=== PATIENT | male | born 1965 | race Caucasian/White ===

== ENCOUNTER 2018-02-15 17:40 | Emergency (ER) | payer OTHER ==
[~2018-02-15] VITALS: Ht 167.6 cm; Wt 68.0 kg
[~2018-02-15 17:40] MED LIST: AVALIDE 150-121 EACH PO; LYRICA; PREDNISONE 20 M20 MG PO
[2018-02-15] MEDS ORDERED: WELLBUTRIN XL300 MG PO (18:05)
[2018-02-15] MEDS ORDERED: LISINOPRIL20 MG PO (18:05)
[2018-02-15] MEDS ORDERED: BACTROBAN CREAM30 G1 TOP (19:07)
[2018-02-15] MEDS ORDERED: NAPROSYN500 MG PO (19:07)
[2018-02-15] MEDS ORDERED: CLEOCIN HCL150 MG PO (19:07)
== END 2018-02-15 19:18 | disposition home or self-care (01) ==
LOC: ER 17:40
DX: S91.332A Puncture wound without foreign body, left foot, initial encounter (principal); L01.00 Impetigo, unspecified; M25.531 Pain in right wrist; M54.5 Low back pain; B18.2 Chronic viral hepatitis C; I10 Essential (primary) hypertension; K21.9 Gastro-esophageal reflux disease without esophagitis; F17.200 Nicotine dependence, unspecified, uncomplicated; Z88.5 Allergy status to narcotic agent; W22.8XXA Striking against or struck by other objects, initial encounter; Y93.89 Activity, other specified; Y92.89 Other specified places as the place of occurrence of the external cause; Y99.8 Other external cause status

== ENCOUNTER 2018-05-16 04:14 | Emergency (ER) | payer OTHER ==
[~2018-05-16] VITALS: Ht 167.6 cm; Wt 64.9 kg
[~2018-05-16 04:14] MED LIST changes: +BACTROBAN CREAM30 G1 TOP; +CLEOCIN HCL150 MG PO; +LISINOPRIL20 MG PO; +NAPROSYN500 MG PO; +WELLBUTRIN XL300 MG PO
[2018-05-16] MEDS ORDERED: ROXICODONE5 MG PO (04:41)
[2018-05-16] MEDS ORDERED: [UNRECOGNIZED DRUG - OTHER] (04:43)
[2018-05-16 05:31] LABS: ABSOLUTE NEUTROPHILS 7.1 thou/uL (1.4-8.2); BASOPHILS 1.9 % (0.0-2.0); EOSINOPHILS 1.4 % (0.0-3.0); HEMATOCRIT 35.4 % (42.0-52.0); HEMOGLOBIN 12.4 gm/dL (14.0-18.0); LYMPHOCYTES 17.4 % (24.0-44.0); MCH 32.7 pg (26.0-34.0); MCV 93.4 fL (80.0-100.0); MONOCYTES 8.5 % (1.0-8.0); PLATELET COUNT 321 thou/uL (150-400); POLYS 70.8 % (36.0-66.0); RBC 3.79 mil/uL (4.50-6.00); RDW 13.6 % (10.5-14.5); WBC 10.1 thou/uL (4.0-11.0)
[2018-05-16 05:38] LABS: ANION GAP 13 mmol/L (7-16); BUN 29 mg/dL (7-18); CALCIUM 9.3 mg/dL (8.5-10.1); CHLORIDE 99 mmol/L (98-107); CO2 25 mmol/L (21-32); CREATININE 2.2 mg/dL (0.7-1.3); GLUCOSE 124 mg/dL (74-106); POTASSIUM 4.3 mmol/L (3.5-5.1); SODIUM 137 mmol/L (136-145)
[2018-05-16 05:47] LABS: TROPONIN-I <0.06 ng/mL (<0.06)
[2018-05-16] MEDS ORDERED: AZITHROMYCIN 2250 MG PO (06:05)
[2018-05-16] MEDS ORDERED: TESSALON PERLE100 MG PO (06:13)
[2018-05-16] MEDS ORDERED: ROBITUSSIN15 MG/5 ML PO (06:18)
[2018-05-16 06:20] VITALS: BP 129/67
--- NOTE | 2018-05-16 08:11 | EKG ---
[address] [address] ELECTROCARDIOGRAM REPORT Name: NAGIDEEP JaureguiSHARLA M Room #: [facility]#: [id number] Admission: 05/16/18 Attend Phys: Discharge: 05/16/18 Date of : 65 Report #: [id number] THIS REPORT FOR: //name// [facility] ED Test Date: 2018-05-16 Test Time: 05:28:34 Pat Name: SHARLA CUMMINGS Department: Room: Gender: Erp Business Analyst: nanda : 1965 Requested By: Kati Mendoza Order Number: [id number] MD: Leonard Sanderson Measurements Intervals Hector Rate: 80 P: 67 OR: 139 QRS: 54 QRSD: 89 T: 52 QT: 396 QTc: 457 Interpretive Statements Sinus rhythm Normal tracing No previous ECG available for comparison Electronically Signed On 05-16-2018 8:11:28 INJECTION PRESS OPERATOR by Leonard Sanderson [email or web address] <ELECTRONICALLY SIGNED> By: Leonard Sanderson MD, [facility] 05/16/18 0811 0528 0528 Leonard Sanderson MD, FACC /EPI
== END 2018-05-16 06:21 | disposition home or self-care (01) ==
LOC: ER 04:14
PROVIDERS: Student in an Organized Health Care Education/Training Program
DX: J40 Bronchitis, not specified as acute or chronic (principal); I12.9 Hypertensive chronic kidney disease with stage 1 through stage 4 chronic kidney disease, or unspecified chronic kidney disease; N18.9 Chronic kidney disease, unspecified; K21.9 Gastro-esophageal reflux disease without esophagitis; Z88.8 Allergy status to other drugs, medicaments and biological substances

== ENCOUNTER 2018-08-25 00:17 | Emergency (ER) | payer OTHER ==
[~2018-08-25] VITALS: Ht 177.8 cm; Wt 81.7 kg
[~2018-08-25 00:17] MED LIST changes: +AZITHROMYCIN 2250 MG PO; +ROBITUSSIN15 MG/5 ML PO; +ROXICODONE5 MG PO; +TESSALON PERLE100 MG PO; +[UNRECOGNIZED DRUG - OTHER]
[2018-08-25] MEDS ORDERED: TRAZODONE 150150 M1 PO (00:46)
[2018-08-25] MEDS ORDERED: ZANAFLEX4 M1 PO (00:47)
[2018-08-25 04:00] VITALS: BP 173/98
== END 2018-08-25 04:00 | disposition short-term general hospital (02) ==
LOC: ER 00:17
DX: S02.641A Fracture of ramus of right mandible, initial encounter for closed fracture (principal); I10 Essential (primary) hypertension; K21.9 Gastro-esophageal reflux disease without esophagitis; Z88.8 Allergy status to other drugs, medicaments and biological substances; Y04.2XXA Assault by strike against or bumped into by another person, initial encounter; Y93.89 Activity, other specified; Y92.89 Other specified places as the place of occurrence of the external cause; Y99.8 Other external cause status

== ENCOUNTER 2020-01-17 18:02 | Inpatient (IN) | payer OTHER ==
[~2020-01-17] VITALS: Ht 167.6 cm; Wt 47.2 kg
[~2020-01-17 18:02] MED LIST changes: +TRAZODONE 150150 M1 PO; +ZANAFLEX4 M1 PO
[2020-01-17 18:03] VITALS: BP 180/114
[2020-01-17 18:40] LABS: WBC 11.4 thou/uL (4.0-11.0)
[2020-01-17 18:41] LABS: HEMATOCRIT 33.2 % (42.0-52.0); HEMOGLOBIN 10.7 gm/dL (14.0-18.0); MCH 28.7 pg (26.0-34.0); MCHC 32.3 g/dL (28.0-37.0); MCV 88.7 fL (80.0-100.0); RBC 3.74 mil/uL (4.50-6.00); RDW 18.7 % (10.5-14.5)
[2020-01-17 18:49] LABS: ANION GAP 9 mmol/L (7-16); BUN 19 mg/dL (7-18); CALCIUM 9.5 mg/dL (8.5-10.1); CHLORIDE 97 mmol/L (98-107); CO2 27 mmol/L (21-32); CREATININE 0.8 mg/dL (0.7-1.3); GLUCOSE 98 mg/dL (74-106); POTASSIUM 4.2 mmol/L (3.5-5.1); SODIUM 133 mmol/L (136-145)
[2020-01-17 19:00] LABS: ALBUMIN 2.6 g/dL (3.4-5.0); LIPASE 29 U/L (73-393); SGOT 14 U/L (15-37); SGPT 13 U/L (30-65); TOTAL BILIRUBIN 0.3 mg/dL (0.2-1.0); TOTAL PROTEIN 9.8 g/dL (6.4-8.2); TROPONIN-I <0.06 ng/mL (<0.06)
[2020-01-17] MEDS ORDERED: AMLODIPINE BESY10 MG PO (19:22)
[2020-01-17] MEDS ORDERED: ACETAMINOPHEN650 M5 PO (19:22)
[2020-01-17] MEDS ORDERED: COLESTIPOL HCL1 G1 PO (19:23)
[2020-01-17] MEDS ORDERED: DULCOLAX STOOL100 M1 PO (19:23)
[2020-01-17] MEDS ORDERED: NEURONTIN300 MG PO (19:24)
[2020-01-17] MEDS ORDERED: PROZAC 10 MG CA10 MG PO (19:24)
[2020-01-17] MEDS ORDERED: OXTELLAR XR300 MG PO (19:25)
[2020-01-17] MEDS ORDERED: MIRALAX119 GM PO (19:26)
[2020-01-17] MEDS ORDERED: ROXICODONE15 M1 PO (19:26)
[2020-01-17] MEDS ORDERED: GAS-X125 M1 PO (19:27)
[2020-01-17] MEDS ORDERED: BISACODYL10 MG RECTAL (19:28)
[2020-01-17] MEDS ORDERED: LATUDA20 MG PO (19:29)
[2020-01-17 20:15] LABS: URINE BILIRUBIN NEGATIVE (Negative); URINE BLOOD NEGATIVE (Negative); URINE CLARITY CLEAR; URINE COLOR YELLOW; URINE GLUCOSE-RANDOM* NEGATIVE (Negative); URINE KETONES NEGATIVE (Negative); URINE LEUKOCYTES-REFLEX NEGATIVE (Negative); URINE NITRITE-REFLEX NEGATIVE (Negative); URINE PROTEIN (DIPSTICK) TRACE (Negative); URINE SPECIFIC GRAVITY 1.025 (1.005-1.035); URINE UROBILINOGEN 0.2 E.U./dl (0.2-1.0)
[2020-01-18 00:35] LABS: % SATURATION 10 % (20-39); IRON 21 ug/dL (65-175); TIBC 203 ug/dL (250-450)
[2020-01-18 08:21] LABS: HEMATOCRIT 31.4 % (42.0-52.0); MCH 28.1 pg (26.0-34.0); MCHC 31.8 g/dL (28.0-37.0); MCV 88.4 fL (80.0-100.0); RBC 3.55 mil/uL (4.50-6.00); RDW 18.7 % (10.5-14.5); WBC 10.7 thou/uL (4.0-11.0)
[2020-01-18 08:34] LABS: CALCIUM 8.4 mg/dL (8.5-10.1); CREATININE 0.8 mg/dL (0.7-1.3); MAGNESIUM 1.8 mg/dL (1.8-2.4); POTASSIUM 4.3 mmol/L (3.5-5.1)
[2020-01-18 11:41] VITALS: BP 140/98
--- NOTE | 2020-01-18 13:52 | NUR ---
PT STATES THAT "NG TUBE FELL OUT"
[2020-01-18 16:55] VITALS: BP 174/102
[2020-01-18 17:20] VITALS: BP 144/94
[2020-01-18 19:10] VITALS: BP 163/100
--- NOTE | 2020-01-18 19:56 | NUR ---
Admitted patient from ER due to nausea, vomiting and abdominal pain. Transferred to bed safely. Admission history, education and assessment done. A+OX4. On room air. Vital signs stable. On telemetry; SR; no complains of chest pain, crushing sensation and heaviness. On nothing per orem- pt informed and aware. With NG tube in place- on R nare- verified with ER staff, no orders to connect to LIS. No nausea and vomting noted upon admission to street. Assisted in ADLs. Admission forms signed. With abdominal scar noted- no bleeding and drainage seen, pt said he had surgery from [place]; with TIFFANY drain at [facility] noted- dressing C/D/I, pt said it was also placed from [place] and has been there for almost a month already. Falls bundle in place. Complained of pain, PRN meds given already and not due until 8pm- Dr Bonner informed, a/w orders for additional pain meds. With SL at R FA- D5NS started as prescribed at 80cc/hr, infusing well. Continent of bowel and bladder, able to go to the toilet with standby assist. With orders for medical records to be obtained from [facility]- Night RN informed to continue admission as well, SCDs to be applied as well. To continue monitoring patient.
[2020-01-18 22:30] VITALS: BP 158/98
--- NOTE | 2020-01-19 01:27 | NUR ---
PT AMBULATING TO BATHROOM WITH STANDBY ASSIST AND IS TOLERATING WELL. DILAUDID PROVIDING PAIN RELIEF. DENIES NAUSEA. PT TRANSFERRED TO AT 2200 VIA BED. BEDSIDE REPORT GIVEN.
--- NOTE | 2020-01-19 05:49 | NUR ---
VSS-AFEBRILE. C/O ABDOMINAL PAIN THAT IS WELL CONTROLLED WITH IV PAIN MEDS. KEPT NPO AFTER MIDNIGHT DUE TO SURGERY TODAY. CALLS APPROPRIATELY FOR ASSISTANCE.
[2020-01-19 07:16] VITALS: BP 165/95
[2020-01-19 15:12] LABS: HEMOGLOBIN 9.1 gm/dL (14.0-18.0); MCH 28.7 pg (26.0-34.0); MCHC 31.2 g/dL (28.0-37.0); MCV 91.8 fL (80.0-100.0); RBC 3.15 mil/uL (4.50-6.00); RDW 18.8 % (10.5-14.5); WBC 4.2 thou/uL (4.0-11.0)
[2020-01-19 15:13] VITALS: BP 147/88
[2020-01-19 15:14] LABS: PLATELET COUNT 831 thou/uL (150-400)
[2020-01-19 15:22] LABS: CALCIUM 8.3 mg/dL (8.5-10.1); CREATININE 0.7 mg/dL (0.7-1.3); MAGNESIUM 1.6 mg/dL (1.8-2.4); POTASSIUM 3.8 mmol/L (3.5-5.1)
[2020-01-19 15:40] LABS: ABSOLUTE NEUTROPHILS 2.5 thou/uL (1.4-8.2); ANISOCYTOSIS 2+
[2020-01-19 15:41] LABS: MICROCYTES FEW
[2020-01-19 15:42] LABS: MACROCYTES FEW; POLYCHROMASIA OCCASIONAL; SCHISTOCYTES OCCASIONAL
--- NOTE | 2020-01-19 18:27 | NUR ---
PT A&OX4, VSS, PAIN. PAIN MEDICATION GIVEN. PATIENT HAS TIFFANY DRAIN LLQ. IV PATENT. PATIENT ON FULL LIQUID DIET. SURGRY CANCELED TODAY. PT NSR ON TELE MONITOR. NO SIGNS OF DISTRESS, WILL CONTINUE TO MONITOR.
[2020-01-19 20:30] VITALS: BP 163/105
[2020-01-19 23:27] VITALS: BP 159/94
--- NOTE | 2020-01-20 04:12 | NUR ---
ASSUMED CARE OF PT AT 1900HRS. PT AOX4 AND LETS NEEDS BE KNOWN. TIFFANY IN LLQ OF ABDOMEN. PT RUNNING SR ON TELE. PT REPORTED PAIN AND WAS TREATED WITH PRN PAIN MEDS. PT DENIES HAVING AN ANAL ABCESS AND REFUSES ASSESSMENT. PT EVEN WANTS TO ADMINISTER OWN SUPPOSITORY. PT HAS HTN AND LOPRESSOR SCHEDULED. OTHER VSS. PT WAS ABLE TO GET COMFORTABLE AND SLEEP PART OF THE SHIFT. WILL CONTINUE TO MONITOR.
[2020-01-20 06:09] VITALS: BP 178/109
[2020-01-20 06:11] LABS: HEMOGLOBIN 9.1 gm/dL (14.0-18.0)
[2020-01-20 06:12] LABS: HEMATOCRIT 28.7 % (42.0-52.0); MCH 28.4 pg (26.0-34.0); MCHC 31.7 g/dL (28.0-37.0); MCV 89.6 fL (80.0-100.0); RBC 3.21 mil/uL (4.50-6.00); RDW 18.8 % (10.5-14.5); WBC 4.8 thou/uL (4.0-11.0)
[2020-01-20 06:14] LABS: ALBUMIN 1.9 g/dL (3.4-5.0); CALCIUM 8.3 mg/dL (8.5-10.1); CREATININE 0.7 mg/dL (0.7-1.3); POTASSIUM 3.4 mmol/L (3.5-5.1); TOTAL BILIRUBIN 0.2 mg/dL (0.2-1.0); TOTAL PROTEIN 7.2 g/dL (6.4-8.2)
--- NOTE | 2020-01-20 07:25 | EKG ---
[facility] [place] [address] ELECTROCARDIOGRAM REPORT Name: SHARLA CUMMINGS Room #: 449-I ADM IN M.R.#: [id number] Admission: 01/17/20 Attend Phys: Venkatesh Dykes Discharge: Date of : 65 Report #: [id number] THIS REPORT FOR: cc: RENNY Partida family physician/PCP RENNY Partida family physician/PCP Leonard Sanderson MD [facility] THIS REPORT FOR: //name// [facility] ED Test Date: 2020-01-17 Test Time: 19:02:55 Pat Name: SHARLA CUMMINGS Department: Room: [facility] Gender: M Elevator Operator: amadou : 1965 Requested By: Kati Mendoza Order Number: [id number] MD: Leonard Sanderson Measurements Intervals [place] Rate: 98 P: 65 NJ: 149 QRS: 58 QRSD: 90 T: 53 QT: 353 QTc: 451 Interpretive Statements Sinus rhythm Nonspecific ST segment abnormality Baseline wander in lead(s) V2 Compared to ECG 05/16/2018 05:28:34 No significant change was found Electronically Signed On 01-20-2020 7:25:39 CDT by Leonard Sanderson [email or web address] <ELECTRONICALLY SIGNED> By: Leonard Sanderson MD, FAC 01/20/20 0725 01 01 Leonard Sanderson MD, FAC /EPI
[2020-01-20 08:45] VITALS: BP 162/106
--- NOTE | 2020-01-20 12:22 | NUR ---
IV TEAM PAGED X 2 FOR PERIPHERAL LINE PLACEMENT. EMILIANO IV INFILTRATED AT 1100. POTASSIUM AND ANITBX ON HOLD UNTIL WE CAN GET A LINE, THIS RN ATTEMPTED X 2 WITHOUT SUCCESS.
--- NOTE | 2020-01-20 13:56 | NUR ---
PAGED IV TEAM X 3, STATES WILL BE HERE WHEN THEN CAN GET HERE. AWAITING IV FOR POTASSIUM, IV ATBX AND PAIN MED ADMINISTRATION. PT UPDATED, LADIES' HAT TRIMMER NOTIFIED OF 2.5HR WAIT FOR IV TEAM.
--- NOTE | 2020-01-20 14:06 | NUR ---
PT ADMITTED RELATED TO SBO, HYPONATREMIA. CM REVIEWED CHART AND SPOKE WITH CARE TEAM. CM CALLED AND SPOKE WITH PT OVER THE PHONE THIS AM. PT INDICATED HE HAD BEEN AT [facility] FOR SHORT TERM SKILLED REHAB PRIOR TO ADMISSION. PT INDICATED HE [place]IDES IN [place]. HE INDICATED HIS COMMUNITY PCP IS DR. JOSELYN WALLACE. 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 PT HAD NG IN PLACE UPON ADMISSION IT HAS SINCE BEEN REMOVED. PT IS BEING ADVANCED TO CLEAR LIQUID DIET YESTERDAY. PT INDICATED HE PLANS TO RETURN TO [facility] ONCE MEDICALLY STABLE. CM NOTIFIED LIAISON. SHE IS AWARE. REFERRAL TO BE FAXED TO FACILITY. CM TO FOLLOW INDICATED WITH DC PLANNING.
[2020-01-20 14:50] VITALS: BP 155/106
--- NOTE | 2020-01-20 16:32 | NUR ---
ASSUMED CARE AT SHIFT CHANGE. PT A/O X 4, PLESANT AND CALM THROUGHOUT SHIFT. PT IV LEAVING AND INFILTRATED AFTER AM MEDS GIVEN. ATTEMPTED X 2 FOR IV WITH NO SUCCESS. CALLED IV TEAM FOR NEW IV PLACEMENT. MEDS GIVEN AFTER NEW IV PLACED. PT PAIN CONTROLLED WITH PRN PAIN MEDS PER EMAR. BP ELEVATED DESPITE SCHEDULED LOPRESSOR , DR MOSQUEDA NOTIFIED AND MEDS ORDERED. LABS ORDERED, HEM/ONC CONSULTED. PT DENIES NAUSEA THROUGHOUT THE DAY, REG DIET ORDERED TODAY PT HAD BM THIS AFTERNOON AND KUB SHOWS SBO RESOLVING. ASSESSMENT PER CHART. WILL CONT TO YUEIOR.
[2020-01-20 20:17] VITALS: BP 131/83
[2020-01-20 23:20] VITALS: BP 154/85
--- NOTE | 2020-01-21 01:49 | NUR ---
ASSUMED CARE OF PT AT 1900HRS. PT AOX4 AND LETS NEEDS BE KNOWN. ASSESSMENT CHARTED. PT RUNNING SR/SB ON TELE. ABC TREATMENT CONTINUED. PT REPORTED SOME PAIN AND WAS TREATED WITH PRN PAIN MEDS. PT REPORTS PASSING GAS. PT DENIES NAUSEA OR SOA. SOME MEDS SEITCHED TO PO. PT WAS ABLE TO GET COMGORTABLE AND SLEEP PART OF THE SHIFT. VSS AND NO S/S OF ACUTE DISTRESS. WILL CONTINUE TO MONITOR.
[2020-01-21 05:20] VITALS: BP 160/84
--- NOTE | 2020-01-21 16:13 | NUR ---
PT IS FROM [facility] FAXED CLINICAL UPDATE SPOKE WITH BECKI IN ADM SHE RECEIVED UPDATE. DP TO FOLLOW.
[2020-01-21 16:26] VITALS: BP 146/93
[2020-01-21 19:05] VITALS: BP 157/96
--- NOTE | 2020-01-22 03:16 | NUR ---
Pt. rested quietly at short intervals during the night when checked on during frequent rounds. He c/o nausea and was given ivp zofran with some relief. Pt. also c/o abdominal pain and ivp pain meds given (see emar) with some relief (see emar). He is passing gas. Up to the bathroom with stand by assist.
[2020-01-22 06:07] VITALS: BP 143/91
[2020-01-22 08:00] VITALS: BP 145/97
[2020-01-22 10:36] LABS: ABSOLUTE RETIC COUNT 0.042 10^6/uL; OBSERVED RETIC COUNT 1.44 % (0.6-2.6)
--- NOTE | 2020-01-22 14:00 | NUR ---
CARE TEAM INDICATED THAT PT IS TO BE NPO AFTER MIDNIGHT THIS EVENING FOR AN ULTRASOUND TOMROROW. CM NOTIFIED LIAISON AT [facility] OF POSSIBLE DC TOMORE DEPENDING ON OR MONDAY. SHE INDICATED THAT THEY DON'T NEED PT TO HAVE ANOTHER COVID TEST PRIOR TO RETURNING. CM TO FOLLOW INDICATED WITH DC PLANNING.
--- NOTE | 2020-01-22 16:14 | NUR ---
PT A&OX4, VSS, ABDOMINAL PAIN. PATIENT C/O OF NAUSEA AND HARD TO PASS FLATUS. PATIENT GIVEN MEDICATION TO HELP WITH THESE CONCERNS. NAUSEA AND FLATUS RELIEVED. PAIN IS CONTINUOUS PER PATIENT. PATIENT STEADY ON FEET AND UP TO BATHROOM AD DAYLIN. PURULENT DRAINAGE FROM TIFFANY TUBE LLQ 10 ML OFF THIS SHIFT. PATIENT IN A DEPRESSIVE MOOD. NO SIGNS OF DISTRESS WILL CONTINUE TO MONITOR.
[2020-01-22 17:00] VITALS: BP 150/94
[2020-01-22 20:06] LABS: IgA 360 mg/dL (90-386); IgG 2171 mg/dL (603-1613); IgM 162 mg/dL (20-172)
[2020-01-22 20:13] VITALS: BP 140/90
--- NOTE | 2020-01-23 04:55 | NUR ---
Pt. rested quietly at intervals during the night when checked on during frequent rounds. He c/o chronic abdominal pain and pain meds given (see emar) with some relief. He also c/o nausea and iv zofran given with relief. Raheem drain intact with very minimal drainage.
[2020-01-23 06:47] LABS: HEMATOCRIT 28.6 % (42.0-52.0); HEMOGLOBIN 9.2 gm/dL (14.0-18.0); MCH 29.3 pg (26.0-34.0); MCHC 32.2 g/dL (28.0-37.0); RBC 3.15 mil/uL (4.50-6.00); RDW 19.5 % (10.5-14.5); WBC 6.9 thou/uL (4.0-11.0)
[2020-01-23 07:02] LABS: CALCIUM 8.5 mg/dL (8.5-10.1); CREATININE 0.6 mg/dL (0.7-1.3); POTASSIUM 3.9 mmol/L (3.5-5.1)
[2020-01-23 07:23] VITALS: BP 142/94
[2020-01-23 08:07] LABS: HEMOGLOBIN 9.1 g/dL (13.0-17.7)
--- NOTE | 2020-01-23 10:35 | NUR ---
Patient finished 90$ of breakfast, denied nausea, no vomitting.
--- NOTE | 2020-01-23 12:06 | NUR ---
CARE TEAM INDICATED THAT PT WILL LIKELY BE MEDICALLY STABLE TO DC BACK TO [facility] TOMORROW. CM NOTIFIED LIAISON AND THEY ARE AWARE AND ABLE TO ACCEPT PT BACK. CM TO FOLLOW INDICATED WITH DC PLANNING.
[2020-01-23 14:56] VITALS: BP 132/76
[2020-01-23 16:06] LABS: KAPPA FREE LIGHT CHAINS 74.8 mg/L (3.3-19.4); KAPPA/LAMBDA RATIO 1.36 (0.26-1.65); LAMBDA FREE LIGHT CHAINS 55.1 mg/L (5.7-26.3)
--- NOTE | 2020-01-23 17:52 | NUR ---
Patient voices that the pain in his abdomen is becoming worse, the pain was in one side of abdomen and then the other side alteratively, now he has pain is being in both sides. he says that his infection is becoming worse, asking the staff to report it to the doctor. the staff will page the doctor and also pass it on to the night nurse. The staff noticed the TIFFANY drain had some drainage in at the beginning of the shift, the staff collected 8ml drainage at the end of the shift, no much drainage happened during the shift. will report this to the doctor and night nurse.
--- NOTE | 2020-01-23 18:46 | NUR ---
Dr. Lizzy stauffer. awaiting for response.
--- NOTE | 2020-01-23 18:49 | NUR ---
Dr. Ball answered. Dr. Guy paged, awaiting for response.
[2020-01-23 20:25] VITALS: BP 122/86
[2020-01-24 03:02] LABS: MCH 28.8 pg (26.0-34.0); MCHC 31.9 g/dL (28.0-37.0); MCV 90.3 fL (80.0-100.0); RBC 2.77 mil/uL (4.50-6.00); WBC 8.5 thou/uL (4.0-11.0)
[2020-01-24 03:39] LABS: ALBUMIN 1.8 g/dL (3.4-5.0); CALCIUM 8.2 mg/dL (8.5-10.1); CREATININE 0.6 mg/dL (0.7-1.3); POTASSIUM 3.5 mmol/L (3.5-5.1); TOTAL BILIRUBIN 0.1 mg/dL (0.2-1.0); TOTAL PROTEIN 6.5 g/dL (6.4-8.2)
--- NOTE | 2020-01-24 06:43 | NUR ---
DIFFICULTY MANANGING PAIN OVERNIGHT. C/O CONTINUED ABDOMINAL CRAMPING RATED 9/10. CONTACTED Berta LOPEZ, BREAKTHROUGH MEDICATION ORDERED, WELL ONE DOSE OF TORADOL. RELIEF NOTED, AND SLEEPING AT END OF SHIFT. REPORTS CONTINUED PASSING FLATUS, NO BM THIS SHIFT.
[2020-01-24 07:13] VITALS: BP 123/81
--- NOTE | 2020-01-24 11:58 | NUR ---
CARE TEAM INDCIATED THAT PT IS TO GO TO IR FOR IR CHOLANGIOGRAM TODAY. PHYSICIAN HAD INDICATED THAT PT COULD LIKELY BE MEDICALLY STABLE TO DC BACK TO [facility] OVER THE WEEKEND. SHOULD PT BE MEDICALLY STABLE TO DC OVER WEEKEND CONTACT PARRIS STARR AT TO FACILITATE DISCHARGE. CHART COPY WILL NEED TO BE MADE. REPORT TO BE CALLED TO FAX ORDERS TO .
[2020-01-24 12:03] LABS: APTT 34.1 Seconds (24.5-32.8); PROTIME 10.7 Seconds (9.3-11.4)
[2020-01-24 13:35] VITALS: BP 137/92
--- NOTE | 2020-01-24 17:00 | NUR ---
ASSUMED PT CARE THIS AM. PT VITAL SIGNS STABLE, A&OX4. PT COOPERATIVE WITH STAFF, CALLS WHEN NEEDED. PT REPORTED PAIN IN ABDOMEN, PARTIALLY RESPONSIVE TO PAIN MEDICATION. CONSULT PUT IN FOR IR PROCEDURE, PT MADE NPO, PROCEDURE DID NOT OCCUR TODAY. CONSULTED DR REGARDING CONFUSION BETWEEN DOCTOR AND IR. STATED THAT PROCEDURE IS NOT OCCURING TODAY, PT PLACED BACK ON NORMAL DIET. PT AMBULATORY TO RESTROOM, NO ISSUES URINATING. WILL CONTINUE TO MONITOR.
[2020-01-24 17:20] VITALS: BP 118/77
[2020-01-24 19:07] LABS: M-SPIKE Not Observed g/dL (Not Observed)
[2020-01-24 19:09] VITALS: BP 118/78
--- NOTE | 2020-01-25 03:40 | NUR ---
ASSUMED CARE OF PT AT 1900. PT IS A/O X4 AND UP AD DAYLIN. C/O PAIN TO ABDOMEN. PRN PAIN MEDICATION GIVEN DIRECTED. PT HAS NOT SLEPT MUCH STATING THE PAIN IS CONSTANT AND IS ONLY PARTIALLY RELIEVED WITH MEDICATION FOR A SHORT PERIOD. AT THIS TIME PT IS SITTING UP IN HIS BED AND APPEARS TO BE WATCHING TV. CALL LIGHT IS WITHIN REACH. WILL CONTINUE TO MONITOR.
[2020-01-25 07:11] VITALS: BP 140/85
--- NOTE | 2020-01-25 14:45 | NUR ---
Received awake on bed. Due medications given as prescribed, able to swallow meds w/o difficulty. On room air. Vital signs stable. On telemetry; no complains and signs of chest pain, crushing sensation and heaviness. On regular diet + supplements- tolerating well; no nausea, no vomiting and no abdominal pain. Continent of bowel and bladder, able to go to the toilet independently. With TIFFANY drain at LUQ- output measured and recorded accordingly- dressing to be changed; Dr Ball re-informed and aware that TIFFANY drain has been with the patient for more than a month already, he said that until the drainage clears up or lessens then to remove. With D5NS at 100cc/hr, infusing well at L FA; on IV antibiotics as well. Assisted in ADLs. Complained of pain, due PRN pain meds given as prescribed- physician made aware of clock watching behaviors and no pain relief from current regimen- Dr Ball modified pain meds from IV to PO. ÁNGELA Chavez made aware of possible discharge tomorrow; referrals to be sent. To continue monitoring patient.
[2020-01-25 15:00] VITALS: BP 124/89
[2020-01-25 20:26] VITALS: BP 136/79
--- NOTE | 2020-01-26 03:55 | NUR ---
Pt. rested quietly at intervals during the night when checked on during frequent rounds. He has been given pain meds (see emar) for c/o abdominal pain with some relief noted.
[2020-01-26 07:30] VITALS: BP 126/80
--- NOTE | 2020-01-26 10:31 | NUR ---
Received awake on bed. Due medications given as prescribed, able to swallow meds w/o difficulty. On room air. Vital signs stable. On telemetry; no complains and signs of chest pain, crushing sensation and heaviness. On regular diet and supplements- tolerating well; no nausea, no vomiting and no abdominal pain noted. Continent of bowel and bladder, able to go to the toilet independently. Up ad melida. Assisted in ADLs. With SL at L FA- intact; on IVabx. Complained of pain, due PRN pain meds given as prescribed. Possible discharge today- still a/w physician's rounds. With TIFFANY drain at LUQ- intact, dressing changed yesterday- output measured and recorded; physician informed that output is minimal but still yellow in color. To continue monitoring patient.
[2020-01-26 15:45] VITALS: BP 128/84
[2020-01-26 20:10] VITALS: BP 132/74
--- NOTE | 2020-01-27 03:00 | NUR ---
VSS-AFEBRILE. LUNGS CLEAR-ROOM AIR. IRRITATED AND UPSET AT START OF SHIFT DUE TO IV PAIN MEDICATION BEING DISCONTINUED. EDUCATED ON IMPORTANCE OF WEANING OFF IV PAIN MEDS AND USING PO MEDICATION, THIS IS WHAT WILL MOST LIKELY BE WHAT IS TAKEN AT HOME AT DISCHARGE. DESPITE THE EDUCATION, PATIENT REMAINED ANGRY. C/O ABDOMINAL PAIN RATED 10/10, STATES THAT THIS PAIN WORSENS AFTER EATING. WAS ABLE TO EAT CHADIAN FOOD THAT HE HAD DELIVERED. TIFFANY DRAINING VERY SMALL AMOUNT OF GREE, SEROUS DRAINAGE. DR MARSHALL IN TO SEE PATIENT, NO PLAN FOR ANY SURGICAL INTERVENTION AT THIS POINT. CALLS APPROPRIATELY FOR ANY NEEDED ASSISTANCE.
[2020-01-27 05:41] LABS: HEMATOCRIT 24.5 % (42.0-52.0); MCH 29.5 pg (26.0-34.0); MCHC 32.6 g/dL (28.0-37.0); MCV 90.7 fL (80.0-100.0); RBC 2.7 mil/uL (4.50-6.00); RDW 21.3 % (10.5-14.5); WBC 4.8 thou/uL (4.0-11.0)
[2020-01-27 05:53] LABS: CALCIUM 8.4 mg/dL (8.5-10.1); CREATININE 0.8 mg/dL (0.7-1.3); POTASSIUM 3.3 mmol/L (3.5-5.1)
[2020-01-27] MEDS ORDERED: ROXICODONE15 M1 PO (09:23)
[2020-01-27 09:26] VITALS: BP 143/84
[2020-01-27 09:30] VITALS: BP 143/84
[2020-01-27] MEDS ORDERED: PERCOCET PO (09:30)
--- NOTE | 2020-01-27 10:23 | NUR ---
PT DISCHARGING TODAY BACK TO [facility] FOR SKILLED STAY FAXED DC ORDERS/SUMMARY TO FACILITY SPOKE WITH BECKI IN ADM SHE RECEIVED ORDERS AND ARRANGED TRANSPORT FOR [id number] TODAY. PT TO NOTIFY FAMILY/FRIEND OF DC. UNIT NOTIFIED AND CHART COPY PER US. RN TO CALL REPORT TO [phone].
--- NOTE | 2020-01-27 10:37 | NUR ---
CARE TEAM INDICATED THAT PT IS MEDICALLY STABLE TO DC BACK TO [facility] THIS DAY. CHART COPY ORDERED. ORDERS FAXED. CM PROVIDED NUMBER FOR REPORT TO NURSE. WHEELCHAIR VAN TRANSPORT ARRANGED FOR 12:30-1300. PT IS AWARE AND AGREEABLE. NO OTHER CM INTERVENTION INDICATED. CASE CLOSED.
--- NOTE | 2020-01-27 12:13 | NUR ---
Received awake on bed. Due medications given as prescribed. On MS, not on telemetry, no complains of chest pain, crushing sensation and heaviness. On room air. On regular diet- tolerating well; no nausea, no vomiting noted. Contient of bowel and bladder, able to go to the toilet independently. With SL at L FA-intact and flushing well. With TIFFANY drain at LUQ- intact, dressing C/D/I; as per Dr Ball and Dr Guy said that pt will be discharged with it and he needs to follow up with his surgeon from [place] to have it removed. Assisted in ADLs. Vital signs stable. Pt still constantly complains of pain, threw a fit re: IV pain meds being discontinued- Dr Ball talked to patient. Discharge orders made- CM informed and aware, transport set up at 12:30-1300. Discharge instructions, follow up schedule given as prescribed.
== END 2020-01-27 12:38 | DRG 871 ==
LOC: ER 18:02 → EROBS 20:59 → 4W 20:59 → EROBS 01-18 09:45 → 2N 01-18 16:55 → 4W 01-18 22:29
PROVIDERS: Hospitalist; Internal Medicine; Internal Medicine Hematology & Oncology; Nurse Practitioner Family; Radiology Diagnostic Radiology; Student in an Organized Health Care Education/Training Program; Surgery; ADMIT Hospitalist; ATTEND Hospitalist
DX: A41.9 Sepsis, unspecified organism (principal); E43 Unspecified severe protein-calorie malnutrition; K56.609 Unspecified intestinal obstruction, unspecified as to partial versus complete obstruction; E87.1 Hypo-osmolality and hyponatremia; Z68.1 Body mass index [BMI] 19.9 or less, adult; D47.3 Essential (hemorrhagic) thrombocythemia; I10 Essential (primary) hypertension; B19.20 Unspecified viral hepatitis C without hepatic coma; K58.9 Irritable bowel syndrome, unspecified; K21.9 Gastro-esophageal reflux disease without esophagitis; E87.8 Other disorders of electrolyte and fluid balance, not elsewhere classified; D64.9 Anemia, unspecified; Z20.828 Contact with and (suspected) exposure to other viral communicable diseases; K72.90 Hepatic failure, unspecified without coma; Z79.899 Other long term (current) drug therapy; Z88.8 Allergy status to other drugs, medicaments and biological substances; Z87.891 Personal history of nicotine dependence
CPT/HCPCS: 10045; 10047

== ENCOUNTER 2020-02-22 13:55 | Emergency (ER) | payer OTHER ==
[~2020-02-22] VITALS: Ht 175.3 cm; Wt 61.7 kg
[~2020-02-22 13:55] MED LIST changes: +ACETAMINOPHEN650 M5 PO; +AMLODIPINE BESY10 MG PO; +BISACODYL10 MG RECTAL; +COLESTIPOL HCL1 G1 PO; +DULCOLAX STOOL100 M1 PO; +ELIQUIS5 M1 PO; +FLUCONAZOL200 MG/105 IVPB; +GAS-X125 M1 PO; +LATUDA20 MG PO; +MIRALAX119 GM PO; +NEURONTIN300 MG PO; +OXTELLAR XR300 MG PO; +PERCOCET 10-321 EACH PO; +PERCOCET PO; +PROZAC 10 MG CA10 MG PO; +ROXICODONE15 M1 PO; +ZESTRIL40 MG PO; +ZOSYN 3.373.375 GM/1 IV
[2020-02-22 14:14] LABS: RBC 2.46 mil/uL (4.50-6.00); WBC 4.7 thou/uL (4.0-11.0)
[2020-02-22 14:16] LABS: MCH 28.1 pg (26.0-34.0); MCHC 31.5 g/dL (28.0-37.0); MCV 89.3 fL (80.0-100.0); PLATELET COUNT 655 thou/uL (150-400); RDW 20.9 % (10.5-14.5)
[2020-02-22 14:18] LABS: HEMOGLOBIN 6.9 gm/dL (14.0-18.0)
[2020-02-22 14:21] LABS: CALCIUM 8.4 mg/dL (8.5-10.1); CREATININE 0.9 mg/dL (0.7-1.3); POTASSIUM 3.8 mmol/L (3.5-5.1)
[2020-02-22 14:27] LABS: ALBUMIN 1.8 g/dL (3.4-5.0); TOTAL BILIRUBIN 0.1 mg/dL (0.2-1.0); TOTAL PROTEIN 7.1 g/dL (6.4-8.2)
[2020-02-22 14:42] LABS: ABSOLUTE NEUTROPHILS 2.5 thou/uL (1.4-8.2); ATYPICAL LYMPHS 1 %
[2020-02-22 14:43] LABS: POLYCHROMASIA OCCASIONAL
[2020-02-22 14:44] LABS: ANISOCYTOSIS 3+; HYPOCHROMASIA 2+; TARGET CELLS OCCASIONAL
[2020-02-22 15:20] LABS: URINE BILIRUBIN NEGATIVE (Negative); URINE BLOOD NEGATIVE (Negative); URINE CLARITY CLEAR; URINE COLOR YELLOW; URINE GLUCOSE-RANDOM* NEGATIVE (Negative); URINE KETONES NEGATIVE (Negative); URINE LEUKOCYTES-REFLEX NEGATIVE (Negative); URINE NITRITE-REFLEX NEGATIVE (Negative); URINE PROTEIN (DIPSTICK) NEGATIVE (Negative); URINE UROBILINOGEN 0.2 E.U./dl (0.2-1.0)
[2020-02-22 15:28] LABS: AMP/METHAMP Negative (Negative); BARBITURATES Negative (Negative); BENZODIAZEPINES Negative (Negative); COCAINE Negative (Negative); METHADONE Negative (Negative); OPIATES POSITIVE (Negative); PCP Negative (Negative)
[2020-02-22 17:12] VITALS: BP 134/77; BP 154/68; BP 157/95; BP 157/98; BP 158/97
[2020-02-22 23:21] VITALS: BP 157/103
== END 2020-02-22 23:23 | disposition home or self-care (01) ==
LOC: ER 13:55
PROVIDERS: Physician Assistant
DX: D64.9 Anemia, unspecified (principal); G89.29 Other chronic pain; R10.84 Generalized abdominal pain; I13.0 Hypertensive heart and chronic kidney disease with heart failure and stage 1 through stage 4 chronic kidney disease, or unspecified chronic kidney disease; N18.9 Chronic kidney disease, unspecified; I50.9 Heart failure, unspecified; K21.9 Gastro-esophageal reflux disease without esophagitis; J44.9 Chronic obstructive pulmonary disease, unspecified; Z79.899 Other long term (current) drug therapy; Z87.891 Personal history of nicotine dependence; Z88.8 Allergy status to other drugs, medicaments and biological substances

== ENCOUNTER → 2020-03-11 | Outpatient (CLI) | payer OTHER | LOC: CAT 09:40 | PROVIDERS: ATTEND Specialist | DX: K52.9 Noninfective gastroenteritis and colitis, unspecified (principal); K31.89 Other diseases of stomach and duodenum; R19.5 Other fecal abnormalities ==